=== PATIENT | male | born 1980 | race African-American/Black ===

== ENCOUNTER 2017-12-13 06:56 | Emergency (ER) | payer MEDICARE, MEDICAID ==
[2017-12-13 08:47] LABS: Basophils # (auto) 0 uL; Basophils % (auto) 1.3 % (0.0-2.0); Eosinophils # (auto) 0.1 uL; Eosinophils % (auto) 3.4 % (0.0-7.0); Hematocrit 28.3 % (41.0-53.0); Hemoglobin 9.2 g/dL (13.5-17.5); Lymphocytes # (auto) 1.4 uL; Lymphocytes % (auto) 38.2 % (10.0-50.0); Mean Corpuscular Hemoglobin 28.2 pg (28.0-32.0); Mean Corpuscular Hgb Conc. 32.4 g/dL (32.0-36.0); Monocytes # (auto) 0.4 uL; Monocytes % (auto) 10.5 % (0.0-12.0); Neutrophils # (auto) 1.7 uL; Neutrophils % (auto) 46.6 % (37.0-80.0); Platelet Count (auto) 141 10^3/uL (140-450); Red Blood Cells 3.25 10^6/uL (4.5-5.90); Red Cell Distribution Width 16.9 % (11.8-14.3); White Blood Cell 3.7 10^3/uL (4.4-10.8)
[2017-12-13 08:58] LABS: Albumin 3.9 g/dL (3.4-5.0); BUN/Creatinine Ratio 3.4; Calcium 7.8 mg/dL (8.5-10.1)
[2017-12-13 09:01] LABS: Bilirubin, Total 0.5 mg/dL (0.2-1.0); Total Protein 8.1 g/dL (6.4-8.2)
[2017-12-13 09:11] LABS: INR 1.04 (0.9-1.15); Partial Thromboplastin Time 28.2 sec (23.78-33.04); Prothrombin Time 11.1 sec (9.27-12.13)
[2017-12-13 12:41] VITALS: BP 132/78
== END 2017-12-13 12:42 | disposition home or self-care (01) ==
LOC: ER 06:56 → EDBD 06:56 → ER 12:42
DX: T82.868A Thrombosis due to vascular prosthetic devices, implants and grafts, initial encounter (principal); I12.0 Hypertensive chronic kidney disease with stage 5 chronic kidney disease or end stage renal disease; N18.6 End stage renal disease; Z99.2 Dependence on renal dialysis; Z88.8 Allergy status to other drugs, medicaments and biological substances; Z90.49 Acquired absence of other specified parts of digestive tract; Y84.1 Kidney dialysis as the cause of abnormal reaction of the patient, or of later complication, without mention of misadventure at the time of the procedure; Y92.89 Other specified places as the place of occurrence of the external cause
CPT/HCPCS: 36415; 80053; 85025; 85610; 85730